=== PATIENT | female | born 1950 | race African-American/Black ===

== ENCOUNTER 2017-07-09 07:14 | Day surgery (SDC) | payer MEDICARE ==
[2017-07-08 14:05] VITALS: BMI 29.0
[2017-07-09] MEDS ORDERED: Sodium Bicarbonate 2.4 MEQ/5 ML ONE (07:33)
[2017-07-09] MEDS ORDERED: Lidocaine 1% PF 5 ML VIAL ONE (07:33)
[2017-07-09 08:05] VITALS: BP 143/72; TEMP 98.1
--- NOTE | 2017-07-09 09:00 | ULT ---
ULTRASOUND GUIDED FINE NEEDLE ASPIRATION: Date: 07/09/17 INDICATION: TIRADS Category 4 lesion within the medial lower pole of the left thyroid lobe seen on a comparison thyroid ultrasound dated 06/26/17. TECHNIQUE: Informed consent was obtained. Preprocedure ultrasound was performed, identifying the solid nodule w ithin the inferior pole of left thyroid gland. This is not the lesion in question. The lesion in katarina munoz is seen within the medial aspect of the inferior pole left thyroid gland near the thyroid isth mus. This lesion was identified on my real-time examination. The site was marked. Site was prepped a nd draped in the usual sterile fashion. Skin was anesthetized utilizing local anesthetic. Under ultr asound guidance, four separate 25 gauge needles were guided down into the solid lesion of the medial left thyroid gland. A total of four separate FNA samples were submitted to the field operations technician present during the examination. Postprocedural images demonstrate no significant intraparenchymal o r subcutaneous hematoma. IMPRESSION: Successful ultrasound guided fine needle aspiration of a TIRADS category 4 lesion within the medial left thyroid lobe. POS: TEE
== END 2017-07-09 08:40 | disposition home or self-care (01) ==
LOC: ULT 07:14
PROVIDERS: ATTEND Internal Medicine
DX: E04.1 Nontoxic single thyroid nodule (principal); I10 Essential (primary) hypertension; M47.22 Other spondylosis with radiculopathy, cervical region; M19.112 Post-traumatic osteoarthritis, left shoulder; Z91.048 Other nonmedicinal substance allergy status; Z79.82 Long term (current) use of aspirin; Z79.899 Other long term (current) drug therapy; Z90.710 Acquired absence of both cervix and uterus; Z90.89 Acquired absence of other organs; Z82.49 Family history of ischemic heart disease and other diseases of the circulatory system
CPT/HCPCS: 10022; 76942; 88173; 88305; J2001

== ENCOUNTER 2018-05-12 09:56 | Outpatient (CLI) | payer MEDICARE | END 2018-05-12 09:57 | disposition home or self-care (01) | LOC: BICMAMMO 09:56 | PROVIDERS: ATTEND Internal Medicine | DX: Z12.31 Encounter for screening mammogram for malignant neoplasm of breast (principal) | CPT/HCPCS: 77063; 77067 ==

== ENCOUNTER 2019-10-22 05:22 | Outpatient (CLI) | payer MEDICARE ==
[2019-10-22 10:12] LABS: #Eosinphils 0.1 thou/uL (0.0-0.7); #Lymphocytes 1.6 thou/uL (1.20-3.40); #Monocytes 0.5 thou/uL (0.11-0.59); %Basophils 0.5 % (0.0-1.0); %Eosinophils 2.7 % (0.0-10.0); %Monocytes 8.7 % (0.0-10.0); %Neutrophils 58.1 % (42.0-75.0); Hemoglobin 13.1 g/dL (12.0-16.0); Mean Corpuscular HGB CONC 32.6 g/dL (32.0-36.0); Mean Corpuscular Hemoglobin 29.8 pg (27.0-31.0); Mean Corpuscular Volume 91.3 fL (78.0-98.0); Mean Platelet Volume 10.6 fL (7.4-10.4); Platelet Count 159 thou/uL (130-400); RBC Distribution Width 12.8 % (11.5-14.5); Red Blood Cell (RBC) Count 4.41 mill/uL (4.20-5.40); White Blood Cell (WBC) Count 5.2 thou/uL (4.8-10.8)
[2019-10-22 10:19] LABS: INR-International Normal Ratio 0.9; Prothrombin Time 12.1 SEC (12.0-14.7)
[2019-10-22 10:32] LABS: Anion Gap 13 mmol/L (10-20); BUN (Urea Nitrogen) 14 mg/dL (9.8-20.1); Calc. Creatinine Clearance 0 mL/min (70-130); Calcium 10.1 mg/dL (7.8-10.44); Carbon Dioxide 27 mmol/L (23-31); Chloride 105 mmol/L (98-107); Estimated GFR-MDRD 87; Glucose 94 mg/dL (83-110); Potassium 3.1 mmol/L (3.5-5.1); Sodium 142 mmol/L (136-145)
[2019-10-22 10:51] LABS: Bacteria/HPF None Seen HPF (None Seen); Bilirubin Negative (Negative); Blood, Urine Negative (Negative); Clarity Clear (Clear); Glucose, Urine (Dipstick) Normal (Negative); Leukocyte Negative Leu/uL (Negative); Nitrite Negative (Negative); Protein, Urine (Dipstick) 10 mg/dL (Neg-Trace); RBC/HPF 0-3 HPF (0-3); Squamous Epithelial 0-3 HPF (0-3); Urobilinogen Normal mg/dL (Less than 2); WBC/HPF 0-3 HPF (0-3)
== END 2019-10-22 05:23 | disposition home or self-care (01) ==
LOC: LABBT 05:22
PROVIDERS: ATTEND Orthopaedic Surgery
DX: Z01.818 Encounter for other preprocedural examination (principal); M17.11 Unilateral primary osteoarthritis, right knee
CPT/HCPCS: 80048; 81001; 85025; 85610; 87081; 93005; 93010

== ENCOUNTER 2019-11-03 05:50 | Inpatient (IN) | payer MEDICARE ==
[2019-10-22 09:29] VITALS: BMI 27.9
[2019-11-03] MEDS ORDERED: Fentanyl 100 MCG/2 ML VIAL ONE ×4 (07:28→12:16)
[2019-11-03] MEDS ORDERED: Midazolam HCl 2 mg/2 ml Vial ONE (07:28)
[2019-11-03] MEDS ORDERED: Sodium Chloride 0.9% 100 ML ONE (07:52)
[2019-11-03] MEDS ORDERED: Tranexamic Acid 1,000 MG/10 ML VIAL ONE (07:52)
[2019-11-03] MEDS ORDERED: Vancomycin 1.5 GRAM/300 ML BAG 1.5 GM/300 ML BAG ONE (07:52)
[2019-11-03] MEDS ORDERED: diphenhydrAMINE 25 MG CAP PO PRN (08:48)
[2019-11-03] MEDS ORDERED: HYDROcodone/Acetaminophen 10/325 mg Tablet PO PRN ×2 (08:48)
[2019-11-03] MEDS ORDERED: Promethazine HCl 25 MG/ML VIAL IM PRN ×3 (08:48→09:59)
[2019-11-03] MEDS ORDERED: Fentanyl 100 MCG/2 ML VIAL SLOW IVP PRN ×2 (08:48)
[2019-11-03] MEDS ORDERED: Acetaminophen 325 MG TAB PO PRN ×2 (08:48→08:57)
[2019-11-03] MEDS ORDERED: Zolpidem Tartrate 5 MG TAB PO PRN ×2 (08:48→08:57)
[2019-11-03] MEDS ORDERED: Ondansetron PF 4 MG/2 ML Vial IVP PRN (08:48)
[2019-11-03] MEDS ORDERED: traMADol HCl 50 MG TAB PO PRN (08:57)
[2019-11-03] MEDS ORDERED: HYDROcodone/Acetaminophen 5/325 mg Tablet PO PRN (08:57)
[2019-11-03] MEDS ORDERED: Fentanyl 100 MCG/2 ML VIAL IV PRN (08:58)
[2019-11-03] MEDS ORDERED: Non-Formulary Item 1 EACH (Multivitamin [Multivitamins] 1 CAP) PO SCH (09:00)
[2019-11-03] MEDS ORDERED: Dexamethasone 20 MG/5 ML VIAL ONE (09:36)
[2019-11-03] MEDS ORDERED: Ondansetron PF 4 MG/2 ML Vial ONE (09:36)
[2019-11-03] MEDS ORDERED: Ropivacaine 0.2% HCl/PF (40 MG/20 ML VIAL) ONE (09:36)
[2019-11-03] MEDS ORDERED: Ropivacaine 0.5% HCl/PF (150 MG/30 ML VIAL) ONE (09:36)
[2019-11-03] MEDS ORDERED: PHENYLEPHRINE-NS 100 MCG/ML 10 ML SYRINGE ONE (09:36)
[2019-11-03] MEDS ORDERED: Lidocaine 1% PF 5 ML VIAL ONE (09:36)
[2019-11-03] MEDS ORDERED: PROPOFOL 200 MG/20 ML VIAL ONE (09:36)
[2019-11-03] MEDS ORDERED: EPHEDRINE 25 MG/5 ML SYRINGE ONE (09:36)
[2019-11-03] MEDS ORDERED: PACU-Morphine 4MG/ML VIAL SLOW IVP PRN (09:59)
[2019-11-03] MEDS ORDERED: HYDROmorphone 2 MG/ML VIAL SLOW IVP PRN (09:59)
[2019-11-03] MEDS ORDERED: Promethazine HCl 25 MG/ML VIAL SLOW IVP PRN (09:59)
[2019-11-03] MEDS ORDERED: Ondansetron HCl/PF 4 MG/2 ML Vial IVP PRN (09:59)
[2019-11-03] MEDS ORDERED: Ketorolac Tromethamine 30 MG/ML VIAL ONE (11:32)
[2019-11-03] MEDS ORDERED: HYDROmorphone 0.5 MG/0.5 ML SYRINGE ONE (11:45)
--- NOTE | 2019-11-03 13:13 | RAD ---
RIGHT KNEE 2 VIEWS: Date: 11/03/2019 HISTORY: Total knee postop arthroplasty. FINDINGS/IMPRESSION: Recent total knee arthroplasty changes. No dislocation or periprosthetic fracture. POS: TEE
[2019-11-03] MEDS: Aspirin 81 mg Enteric Coated Tablet PO SCH ×2 (13:31→20:52)
[2019-11-03] MEDS: Folic Acid 1 MG TAB PO SCH (13:32)
[2019-11-03] MEDS: Estradiol 1 MG TAB PO SCH (13:32)
[2019-11-03] MEDS: Timolol 0.5% Ophth Soln 5 ml Bottle EA EYE SCH ×2 (13:33→20:52)
[2019-11-03] MEDS: Potassium Chloride 20 MEQ TAB PO SCH (13:33)
[2019-11-03] MEDS: Sodium Chloride 0.9% 1,000 ML IV SCH ×3 (13:33→23:45)
[2019-11-03] MEDS: Ketorolac Tromethamine 30 MG/ML VIAL IVP SCH ×3 (13:34→23:46)
[2019-11-03] MEDS: HYDROcodone/Acetaminophen 5/325 mg Tablet PO PRN (13:46)
[2019-11-03] MEDS: Ondansetron PF 4 MG/2 ML Vial IVP PRN (13:47)
--- NOTE | 2019-11-03 13:58 | OP ---
DATE OF PROCEDURE: 11/03/2019 This is Rodger Cordoba PA-C, dictating for Brandon Monaco MD. PREOPERATIVE DIAGNOSIS: End-stage tricompartmental osteoarthritis, right knee. POSTOPERATIVE DIAGNOSIS: End-stage tricompartmental osteoarthritis, right knee. PROCEDURE PERFORMED: Cemented cruciate-sparing computer-assisted navigated right total knee arthroplasty. SURGEON: Brandon Monaco MD [employer] DRIVER: Rodger Cordoba PA-C. ANESTHESIA: General via LMA, augmented with indwelling adductor canal block and a single-shot sciatic block. COMPONENTS USED: Zoutonss Triathlon size 4 cemented cruciate-sparing femoral component with a primary size 3 cemented tibial base plate, 9 mm polyethylene fixed bearing insert, and a 29 patella button. FINDINGS: End-stage severe degenerative tricompartmental disease, [id number] arthrosis, periarticular osteophyte formation, large serous effusion, hypertrophic synovium, and changes consistent with chronic degenerative genu varum. DRAINS: None. SPECIMENS: None. COMPLICATIONS: None. INPUT: 1200 mL of crystalloid. OUTPUT: 300 mL of clear yellow urine. INDICATIONS FOR SURGERY: Reyna is a 69-year-old female who has had progressive right knee pain and problems with standing and walking for the last 5 to 7 years. She has failed conservative management and elected to proceed with total knee arthroplasty as definitive treatment of her pain. PROCEDURE IN DETAIL: After informed consent was obtained in the preoperative holding area, the patient was taken to the operative suite where general anesthesia was induced. Once adequate level of general anesthesia was obtained, the patient was positioned and a well-padded tourniquet was placed around the right proximal thigh. The right lower extremity was then prepped and draped in the usual sterile fashion. Prior to exsanguination, a time-out was called and all members of the surgical team agreed upon site, surgeon, and patient. The extremity was then exsanguinated and the tourniquet was raised. A midline longitudinal incision was then made directly over the patella extending 2 fingerbreadths above the superior pole of the patella and 2 fingerbreadths inferior to the inferior patellar pole of the patella. Deeper subcutaneous layers were dissected sharply and local bleeding was controlled with Bovie electrocautery. A quad tendon longitudinal split was then made sharply and a median parapatellar arthrotomy was carried out both sharp and with Bovie electrocautery, carried down to 1 fingerbreadth medial to the tibial tubercle. The knee was then placed into flexion and the patella was everted nicely, and a copious fat pad ectomy was performed, allowing for greater exposure of the tibia. The computer-assisted distal femoral fiducial was then placed and pinned firmly, and the distal femoral cutting guide was pinned firmly into place. The oscillating saw was then used to remove the appropriate amount of bone. The 4-in-1 cutting block was then placed on the distal femur and the oscillating saw was used to remove the appropriate amount of bone off the anterior, posterior, and chamfer cuts. After completion of bone cuts, the anterior cruciate ligament was resected sharply and the posterior cruciate ligament retractor was placed and the tibia was subluxed for better exposure. Partial meniscectomies were carried out, and the tibial computer-assisted fiducial was pinned, and the cutting guide was placed. Oscillating saw was then used to remove the bone, with Hohmann retractors used to take care and protect the collateral ligaments. After the tibial resection was performed, a laminar masking machine operator was placed in between the freshened bone cuts. The knee placed at 90 degrees and further bilateral meniscectomies were carried out, and the curved osteotome and curettage were used to remove any excess bone spurs in the posterior compartment. The trial femoral component, tibial baseplate were placed with the appropriate polyethylene trial insert with an appropriate polyethylene spacer and patellar button. The knee was taken through full range of motion with flexion and extension from 0 to 90 degrees and patellar broach squarely in the trochlea without any squinting or subluxation noted. The knee was also stable to varus and valgus stressing at 0, 15, 45, and 90 degrees of flexion. The drawer was negative. All trial components were then removed and the keel punch was used to provide the appropriate defect in the tibia with a mallet. The freshened bone cuts were copiously irrigated with pulsatile lavage of about 1.5 L to remove all excess debris. The freshened bone cuts were then dried with suction and lap sponge. The knee was placed in flexion and retractors were placed to provide access to all bone cuts. Tobramycin-impregnated methyl methacrylate cement was then placed on the freshened bone cuts and implants which were malleted firmly into place. Curettage and Pelsor elevators were used to remove any excess bone cement. The knee was placed into full extension and the patellar button was placed under compression, and the cement was allowed to cure. Once completed, the components were again taken through full range of motion and copious irrigation of the knee was carried out with another liter of normal saline. All components were inspected fully with full range of motion and varus and valgus stressing. There was no laxity noted and full extension was observed clinically. Primary closure was accomplished with #2 interrupted Vicryl stitch of the arthrotomy defect. This was oversewn with a #2 running Quill barbed stitch. The subcutaneous layer was then closed with a running 0 barbed Monocryl stitch and skin closure accomplished with a running subcuticular 3-0 Monocryl barbed Quill stitch and augmented with cement on the skin. Tourniquet was lowered. Good spontaneous return of distal pulses was noted clinically and a sterile dressing was applied to the incision. The procedure was terminated without any complications. The patient was awakened in the operative suite and taken to the recovery room in stable condition. Job ID: [id number]
[2019-11-03] MEDS ORDERED: Ketorolac Tromethamine 30 MG/ML VIAL IVP SCH (14:00)
[2019-11-03] MEDS: CEFAZOLIN 2 GM in Premix Bag 1 BAG IVPB SCH ×2 (15:54→23:44)
--- NOTE | 2019-11-03 16:04 | PDOC.HOSPP ---
- Subjective Encounter Date: 11/03/19 Encounter Time: 15:20 Subjective: Patient seen and examined. No new complaints. s/p Right TKR. Denies any chest pain, heart palpitations, SOB, N/V. Consulted for medical management. - Objective Vital Signs & Weight: Vital Signs (12 hours) Temp Pulse Resp BP Pulse Ox 11/03/19 13:00 97.4 F L 57 L 16 111/68 93 L Weight Weight 184 lb Additional Labs: Pre-op labs reviewed by me. 10/22 - K+ 3.1 EKG Reviewed by me: Yes (10/22 - Sinus Tach, 2nd degree AV block (lots of artifact )) Hospitalist ROS - Review of Systems Constitutional: denies: fever, chills, sweats, weakness, malaise, other Respiratory: denies: cough, dry, shortness of breath, hemoptysis, SOB with excertion, pleuritic pain, sputum, wheezing, other Cardiovascular: denies: chest pain, palpitations, orthopnea, paroxysmal noc. dyspnea, edema, light headedness, other - Medication Medications: Active Medications Generic Name Dose Route Start Last Admin Trade Name Freq PRN Reason Stop Dose Admin Hydrocodone Bitart/Acetaminophen 2 tab 11/03/19 08:57 11/03/19 13:46 [place] 5/325 PO 2 tab Q4H PRN Administration For Moderate Pain 4-6 Aspirin 81 mg 11/03/19 09:00 11/03/19 13:31 Ecotrin PO Not Given BID DILIA Estradiol 2 mg 11/03/19 09:00 11/03/19 13:32 Estrace PO Not Given DAILY DILIA Folic Acid 1 mg 11/03/19 09:00 11/03/19 13:32 Folvite PO Not Given DAILY DILIA Cefazolin Sodium/Dextrose 2 gm 50 mls @ 100 mls/hr 11/03/19 15:00 11/03/19 15 :54 / Device IVPB 11/03/19 23:29 50 mls 1500,2300 DILIA Administration Sodium Chloride 1,000 mls @ 100 mls/hr 11/03/19 09:00 11/03/19 13:33 Normal Saline 0.9% IV Not Given .Q10H DILIA Ketorolac Tromethamine 15 mg 11/03/19 12:00 11/03/19 13:34 Toradol IVP 11/05/19 06:01 Not Given Q6HR [facility] Ondansetron HCl 4 mg 11/03/19 08:57 11/03/19 13:47 Zofran IVP 4 mg Q6H PRN Administration Nausea/Vomiting Potassium Chloride 20 meq 11/03/19 09:00 11/03/19 13:33 K-Dur PO Not Given DAILY [facility] Timolol Maleate 1 drop 11/03/19 09:00 11/03/19 13:33 Timoptic 0.5% Ophth Soln EA EYE Not Given BID DILIA - Exam General Appearance: NAD, awake alert Heart: RRR, no murmur, no gallops, no rubs, normal peripheral pulses Respiratory: CTAB, no wheezes, no rales, no ronchi Gastrointestinal: soft, non-tender, no guarding, no rigidity, diminished bowl sounds Psychiatric: normal affect, A&O x 3 Hosp A/P - Plan Impression: Hypokalemia, pre-op lab 3.1 HTN HLD Glaucoma Anemia Plan: Continue home meds Start 1/2 dose metoprolol Hold lasix and Norvasc for now Nerve block per anesthesia ASA DVT prophylaxis per [facility] protocol Pepcid GI prophylaxis per [facility] protocol BMP and hemogram in AM.
[2019-11-03] MEDS: Temazepam 15 MG CAP PO SCH (20:52)
[2019-11-03] MEDS ORDERED: Furosemide 40 MG TAB PO SCH (21:00)
[2019-11-03] MEDS ORDERED: Aspirin 81 mg Enteric Coated Tablet PO SCH (21:00)
[2019-11-03] MEDS ORDERED: Metoprolol Tartrate 100 MG TAB PO SCH (21:00)
[2019-11-03] MEDS ORDERED: Metoprolol Tartrate 50 MG TAB PO SCH (21:00)
[2019-11-03] MEDS ORDERED: Amlodipine 10 MG TAB PO SCH (21:00)
[2019-11-04] MEDS: Sodium Chloride 0.9% 1,000 ML IV SCH ×2 (04:20→14:16)
[2019-11-04] MEDS: Ketorolac Tromethamine 30 MG/ML VIAL IVP SCH ×3 (05:15→18:10)
[2019-11-04 06:08] LABS: Anion Gap 10 mmol/L (10-20); BUN (Urea Nitrogen) 9 mg/dL (9.8-20.1); Calc. Creatinine Clearance 106 mL/min (70-130); Calcium 8.6 mg/dL (7.8-10.44); Carbon Dioxide 24 mmol/L (23-31); Chloride 106 mmol/L (98-107); Estimated GFR-MDRD Greater than 90; Glucose 105 mg/dL (83-110); Potassium 3.4 mmol/L (3.5-5.1); Sodium 137 mmol/L (136-145)
[2019-11-04 06:14] LABS: Hemoglobin 10.2 g/dL (12.0-16.0); Mean Corpuscular Hemoglobin 30.3 pg (27.0-31.0); Mean Corpuscular Volume 91.8 fL (78.0-98.0); Mean Platelet Volume 10.5 fL (7.4-10.4); Platelet Count 115 thou/uL (130-400); RBC Distribution Width 12.6 % (11.5-14.5); Red Blood Cell (RBC) Count 3.37 mill/uL (4.20-5.40); White Blood Cell (WBC) Count 6.3 thou/uL (4.8-10.8)
[2019-11-04] MEDS: Famotidine 20 MG TAB PO SCH (08:02)
[2019-11-04] MEDS: Estradiol 1 MG TAB PO SCH (08:02)
[2019-11-04] MEDS: Ferrous Gluconate 324 MG TAB PO SCH ×2 (08:02→20:26)
[2019-11-04] MEDS: Timolol 0.5% Ophth Soln 5 ml Bottle EA EYE SCH ×2 (08:02→20:26)
[2019-11-04] MEDS: Zinc Sulfate 220 MG CAP PO SCH (08:03)
[2019-11-04] MEDS: Potassium Chloride 20 MEQ TAB PO SCH (08:03)
[2019-11-04] MEDS: Aspirin 81 mg Enteric Coated Tablet PO SCH ×2 (08:03→20:26)
[2019-11-04] MEDS: Multivitamin W/ Minerals 1 TAB PO SCH (08:03)
[2019-11-04] MEDS: Folic Acid 1 MG TAB PO SCH (08:03)
[2019-11-04] MEDS: Senokot S 8.6-50 MG TAB PO SCH ×2 (08:03→20:26)
[2019-11-04] MEDS: traMADol HCl 50 MG TAB PO PRN ×2 (08:03→13:38)
[2019-11-04] MEDS: Ropivacaine HCl/PF 250 ML in Premix Bag 1 BAG NERVE BLCK SCH (11:16)
[2019-11-04] MEDS: HYDROcodone/Acetaminophen 5/325 mg Tablet PO PRN ×2 (11:18→20:25)
[2019-11-04] MEDS ORDERED: Magnesium Sulfate 2 GM in Sodium Chloride 0.9% 100 ML IVPB SCH (12:00)
[2019-11-04] MEDS ORDERED: Magnesium 2 GM/50 ML 2 GM in Premix Bag 1 BAG IVPB SCH (13:00)
[2019-11-04] MEDS: Ondansetron PF 4 MG/2 ML Vial IVP PRN (16:11)
[2019-11-04] MEDS: Temazepam 15 MG CAP PO SCH (20:26)
[2019-11-04] MEDS: Metoprolol Tartrate 50 MG TAB PO SCH (21:16)
--- NOTE | 2019-11-04 23:30 | PDOC.HOSPP ---
- Subjective Encounter Date: 11/04/19 Encounter Time: 09:00 Subjective: Patient seen and examined for med mngt. Pain controlled. No N/V or CP. No new complaints. No overnight events - Objective Vital Signs & Weight: Vital Signs (12 hours) Temp Pulse Resp BP BP Pulse Ox 11/04/19 23:11 98.5 F 60 16 125/74 95 11/04/19 20:26 70 136/76 11/04/19 20:09 97 11/04/19 19:52 98.4 F 70 16 138/76 97 11/04/19 16:15 98.0 F 71 14 151/87 H 95 11/04/19 12:49 97.7 F 68 18 124/73 98 Weight Admit Weight 184 lb Weight 184 lb I&O: 11/03/19 11/04/19 11/05/19 06:59 06:59 06:59 Intake Total 850 1950 Output Total 350 450 Balance 500 1500 Result Diagrams: 11/05/19 05:30 11/04/19 05:14 Additional Labs: Laboratory Tests 11/04/19 05:14 Magnesium 1.5 L EKG Reviewed by me: Yes (SR) Hospitalist ROS - Review of Systems Respiratory: denies: cough, dry, shortness of breath, hemoptysis, SOB with excertion, pleuritic pain, sputum, wheezing, other Cardiovascular: denies: chest pain, palpitations, orthopnea, paroxysmal noc. dyspnea, edema, light headedness, other - Medication Medications: Active Medications Generic Name Dose Route Start Last Admin Trade Name Freq PRN Reason Stop Dose Admin Acetaminophen 650 mg 11/03/19 08:48 11/04/19 05:25 Tylenol PO 650 mg Q4H PRN Administration Headache/Fever or Pain Hydrocodone Bitart/Acetaminophen 1 tab 11/03/19 08:57 11/04/19 05:25 [place] 5/325 PO 1 tab Q4H PRN Administration Mild Pain (1-3) Hydrocodone Bitart/Acetaminophen 2 tab 11/03/19 08:57 11/04/19 20:25 [place] 5/325 PO 2 tab Q4H PRN Administration For Moderate Pain 4-6 Aspirin 81 mg 11/03/19 09:00 11/04/19 20:26 Ecotrin PO 81 mg BID DILIA Administration Estradiol 2 mg 11/03/19 09:00 11/04/19 08:02 Estrace PO 2 mg DAILY DILIA Administration Famotidine 20 mg 11/04/19 09:00 11/04/19 08:02 Pepcid PO 20 mg DAILY DILIA Administration Ferrous Gluconate 324 mg 11/04/19 09:00 11/04/19 20:26 Fergon PO 324 mg BID DILIA Administration Folic Acid 1 mg 11/03/19 09:00 11/04/19 08:03 Folvite PO 1 mg DAILY DILIA Administration Sodium Chloride 1,000 mls @ 100 mls/hr 11/03/19 09:00 11/04/19 14:16 Normal Saline 0.9% IV Not Given .Q10H DILIA Ropivacaine 250 ml/ Device 250 mls @ 10 mls/hr 11/03/19 08:57 11/04/19 11:16 NERVE BLCK 11/06/19 08:56 250 mls INF DILIA Administration Iron/Minerals/Multivitamins 1 tab 11/04/19 09:00 11/04/19 08:03 Theragran M PO 1 tab DAILY DILIA Administration Ketorolac Tromethamine 15 mg 11/03/19 12:00 11/04/19 18:10 Toradol IVP 11/05/19 06:01 15 mg Q6HR DILIA Administration Metoprolol Tartrate 100 mg 11/04/19 21:00 11/04/19 21:16 Lopressor PO 100 mg QPM DILIA Administration Ondansetron HCl 4 mg 11/03/19 08:57 11/04/19 16:11 Zofran IVP 4 mg Q6H PRN Administration Nausea/Vomiting Potassium Chloride 20 meq 11/03/19 09:00 11/04/19 08:03 K-Dur PO 20 meq DAILY DILIA Administration Senna/Docusate Sodium 2 tab 11/04/19 09:00 11/04/19 20:26 Senokot S PO 2 tab BID DILIA Administration Temazepam 15 mg 11/03/19 21:00 11/04/19 20:26 Restoril PO 15 mg HS DILIA Administration Timolol Maleate 1 drop 11/03/19 09:00 11/04/19 20:26 Timoptic 0.5% Ophth Soln EA EYE 1 drop BID DILIA Administration Tramadol HCl 50 mg 11/03/19 08:57 02/19/20 13:38 Ultram PO 50 mg Q6H PRN Administration Mild Pain (1-3) Zinc Sulfate 220 mg 11/04/19 09:00 11/04/19 08:03 Zinc Sulfate PO 220 mg DAILY DILIA Administration - Exam General Appearance: NAD Heart: RRR, no gallops Respiratory: no wheezes, no rales, no ronchi Gastrointestinal: non-tender, non-distended, normal bowel sounds Extremities: no edema Hosp A/P - Plan DVT proph w/SCDs Hypokalemia/Hypomagnesemia HTN HLD Glaucoma Anemia Thrombocytopenia Plan: Replace Potassium and Magesium Cont Metoprolol Cont other meds as above Resume Lasix/Norvasc at dc AM labs
[2019-11-05] MEDS: Ketorolac Tromethamine 30 MG/ML VIAL IVP SCH ×2 (00:17→06:07)
[2019-11-05] MEDS: Sodium Chloride 0.9% 1,000 ML IV SCH ×3 (00:22→22:07)
[2019-11-05 06:07] LABS: Hemoglobin 9.7 g/dL (12.0-16.0); Mean Corpuscular HGB CONC 33.4 g/dL (32.0-36.0); Mean Corpuscular Hemoglobin 30.8 pg (27.0-31.0); Mean Corpuscular Volume 92.3 fL (78.0-98.0); Mean Platelet Volume 10.3 fL (7.4-10.4); Platelet Count 104 thou/uL (130-400); RBC Distribution Width 12.7 % (11.5-14.5); Red Blood Cell (RBC) Count 3.14 mill/uL (4.20-5.40); White Blood Cell (WBC) Count 6.1 thou/uL (4.8-10.8)
[2019-11-05] MEDS: Timolol 0.5% Ophth Soln 5 ml Bottle EA EYE SCH ×2 (08:32→20:05)
[2019-11-05] MEDS: Senokot S 8.6-50 MG TAB PO SCH ×2 (08:33→20:04)
[2019-11-05] MEDS: Famotidine 20 MG TAB PO SCH (08:34)
[2019-11-05] MEDS: HYDROcodone/Acetaminophen 5/325 mg Tablet PO PRN ×3 (08:34→17:46)
[2019-11-05] MEDS: Multivitamin W/ Minerals 1 TAB PO SCH (08:34)
[2019-11-05] MEDS: Aspirin 81 mg Enteric Coated Tablet PO SCH ×2 (08:34→20:04)
[2019-11-05] MEDS: Zinc Sulfate 220 MG CAP PO SCH (08:34)
[2019-11-05] MEDS: Ferrous Gluconate 324 MG TAB PO SCH ×2 (08:34→20:04)
[2019-11-05] MEDS: Folic Acid 1 MG TAB PO SCH (08:34)
[2019-11-05] MEDS: Estradiol 1 MG TAB PO SCH (08:34)
[2019-11-05] MEDS: Potassium Chloride 20 MEQ TAB PO SCH (08:34)
[2019-11-05] MEDS ORDERED: Amlodipine 5 MG TAB PO SCH (12:45)
[2019-11-05] MEDS: Ropivacaine HCl/PF 250 ML in Premix Bag 1 BAG NERVE BLCK SCH (14:29)
[2019-11-05] MEDS: Temazepam 15 MG CAP PO SCH (20:04)
[2019-11-05] MEDS: Metoprolol Tartrate 50 MG TAB PO SCH (20:05)
[2019-11-06] MEDS: Sodium Chloride 0.9% 1,000 ML IV SCH (06:07)
[2019-11-06] MEDS: HYDROcodone/Acetaminophen 5/325 mg Tablet PO PRN ×3 (06:11→10:01)
[2019-11-06] MEDS: Famotidine 20 MG TAB PO SCH (08:26)
[2019-11-06] MEDS: Folic Acid 1 MG TAB PO SCH (08:27)
[2019-11-06] MEDS: Zinc Sulfate 220 MG CAP PO SCH (08:27)
[2019-11-06] MEDS: Estradiol 1 MG TAB PO SCH (08:27)
[2019-11-06] MEDS: Potassium Chloride 20 MEQ TAB PO SCH (08:27)
[2019-11-06] MEDS: Ferrous Gluconate 324 MG TAB PO SCH (08:28)
[2019-11-06] MEDS: Aspirin 81 mg Enteric Coated Tablet PO SCH (08:28)
[2019-11-06] MEDS: Timolol 0.5% Ophth Soln 5 ml Bottle EA EYE SCH (08:28)
[2019-11-06] MEDS: Senokot S 8.6-50 MG TAB PO SCH (08:28)
[2019-11-06] MEDS: Multivitamin W/ Minerals 1 TAB PO SCH (08:28)
[2019-11-06] MEDS ORDERED: Furosemide 20 MG TAB PO SCH (09:00)
[2019-11-06] MEDS ORDERED: Amlodipine 5 MG TAB PO SCH (09:00)
[2019-11-06 15:51] VITALS: BP 167/81; TEMP 97.9
== END 2019-11-06 17:42 | disposition home or self-care (01) | DRG 470 ==
LOC: SDC 05:50 → EEVIPCON 08:30 → SJJU 13:17
PROVIDERS: ADMIT Orthopaedic Surgery; ATTEND Orthopaedic Surgery
PROC: 0SRC0J9 Replacement of Right Knee Joint with Synthetic Substitute, Cemented, Open Approach (ICD-10-PCS; principal; 2019-11-03)
DX: M17.11 Unilateral primary osteoarthritis, right knee (principal); M25.461 Effusion, right knee; M67.261 Synovial hypertrophy, not elsewhere classified, right lower leg; I10 Essential (primary) hypertension; E78.5 Hyperlipidemia, unspecified; D64.9 Anemia, unspecified; H40.9 Unspecified glaucoma; D69.6 Thrombocytopenia, unspecified; E87.6 Hypokalemia; E83.42 Hypomagnesemia; Z91.048 Other nonmedicinal substance allergy status; Z90.710 Acquired absence of both cervix and uterus; Z90.89 Acquired absence of other organs; Z98.890 Other specified postprocedural states
CPT/HCPCS: 36415; 80048; 83735; 85027; C1713; C1776; J0690; J1100; J1170; J1885; J2001; J2250; J2405; J2704; J2795; J3010; J3475; J3490

== ENCOUNTER 2020-04-06 06:26 | Outpatient (CLI) | payer MEDICARE, OTHER ==
[2020-04-06 16:22] LABS: #Eosinphils 0.2 thou/uL (0.0-0.7); #Monocytes 0.3 thou/uL (0.11-0.59); #Neutrophils 2.6 thou/uL (1.40-6.50); %Basophils 0.2 % (0.0-1.0); %Eosinophils 3.9 % (0.0-10.0); %Lymphocytes 38.4 % (21.0-51.0); %Monocytes 5.9 % (0.0-10.0); %Neutrophils 51.7 % (42.0-75.0); Hemoglobin 13.5 g/dL (12.0-16.0); Large Platelets SLIGHT; MDiff Complete? YES; Mean Corpuscular HGB CONC 33.8 g/dL (32.0-36.0); Mean Corpuscular Volume 88.8 fL (78.0-98.0); Mean Platelet Volume 11.5 fL (7.4-10.4); Platelet Count 142 thou/uL (130-400); Platelet Morphology Comment Appears Adequate; RBC Distribution Width 13.8 % (11.5-14.5); RBC Morphology Normal; Red Blood Cell (RBC) Count 4.49 mill/uL (4.20-5.40); White Blood Cell (WBC) Count 5.1 thou/uL (4.8-10.8)
[2020-04-06 16:23] LABS: Anion Gap 14 mmol/L (10-20); BUN (Urea Nitrogen) 18 mg/dL (9.8-20.1); Calc. Creatinine Clearance 0 mL/min (70-130); Calcium 10.4 mg/dL (7.8-10.44); Carbon Dioxide 24 mmol/L (23-31); Chloride 105 mmol/L (98-107); Estimated GFR-MDRD 74; Glucose 105 mg/dL (83-110); Potassium 3.3 mmol/L (3.5-5.1); Sodium 140 mmol/L (136-145)
[2020-04-06 16:27] LABS: INR-International Normal Ratio 0.9; Prothrombin Time 11.6 sec (12.0-14.7)
[2020-04-07 14:38] LABS: SARS-CoV-2 MS2 Positive; SARS-CoV-2 N Gene Negative; SARS-CoV-2 S Gene Negative; SARS-CoV-2 orf1ab Negative
== END 2020-04-06 06:27 | disposition home or self-care (01) ==
LOC: LABBT 06:26
PROVIDERS: ATTEND Orthopaedic Surgery
DX: Z01.812 Encounter for preprocedural laboratory examination (principal); Z11.59 Encounter for screening for other viral diseases; M17.12 Unilateral primary osteoarthritis, left knee
CPT/HCPCS: 80048; 85025; 85610; 87081; U0003; 87635

== ENCOUNTER 2020-04-11 06:00 | Inpatient (IN) | payer MEDICARE ==
[2020-04-11] MEDS ORDERED: Tranexamic Acid 1,000 MG/10 ML VIAL ONE (06:56)
[2020-04-11] MEDS ORDERED: Sodium Chloride 0.9% 100 ML ONE (06:56)
[2020-04-11] MEDS ORDERED: Vancomycin 1.5 GRAM/300 ML BAG ONE (06:56)
[2020-04-11] MEDS ORDERED: Midazolam HCl 2 mg/2 ml Vial ONE (07:49)
[2020-04-11] MEDS ORDERED: Fentanyl 100 MCG/2 ML VIAL ONE ×3 (07:49→11:42)
[2020-04-11] MEDS ORDERED: EPHEDRINE 25 MG/5 ML SYRINGE ONE (09:02)
[2020-04-11] MEDS ORDERED: Succinylcholine Chloride 20 MG/ML 10 ml SYRINGE FS ONE (09:02)
[2020-04-11] MEDS ORDERED: Bupivacaine HCl 0.5%/Epinephrine 1:200,000/PF 30 ml Vial ONE (09:02)
[2020-04-11] MEDS ORDERED: Ondansetron PF 4 MG/2 ML Vial ONE (09:02)
[2020-04-11] MEDS ORDERED: Ropivacaine 0.2% HCl/PF (40 MG/20 ML VIAL) ONE (09:02)
[2020-04-11] MEDS ORDERED: Lidocaine 1% PF 5 ML VIAL ONE (09:02)
[2020-04-11] MEDS ORDERED: Dexamethasone 20 MG/5 ML VIAL ONE (09:02)
[2020-04-11] MEDS ORDERED: Rocuronium Bromide 10 MG/ML (10ML VIAL) ONE (09:02)
[2020-04-11] MEDS ORDERED: PROPOFOL 200 MG/20 ML VIAL ONE (09:02)
[2020-04-11] MEDS ORDERED: Glycopyrrolate 0.2 MG/ML 5 ML SYRINGE ONE (09:02)
[2020-04-11] MEDS ORDERED: HYDROcodone/Acetaminophen 10/325 mg Tablet PO PRN (10:18)
[2020-04-11] MEDS ORDERED: Ondansetron PF 4 MG/2 ML Vial IVP PRN (10:18)
[2020-04-11] MEDS ORDERED: Zolpidem Tartrate 5 MG TAB PO PRN ×2 (10:18→11:34)
[2020-04-11] MEDS ORDERED: Ropivacaine HCl/PF 250 ML in Premix Bag 1 BAG NERVE BLCK SCH (10:18)
[2020-04-11] MEDS ORDERED: traMADol HCl 50 MG TAB PO PRN ×2 (10:18)
[2020-04-11] MEDS ORDERED: Promethazine HCl 25 MG/ML VIAL IM PRN ×3 (10:18→11:43)
[2020-04-11] MEDS ORDERED: SUGAMMADEX SODIUM 200 MG/2 ML VIAL ONE (11:13)
[2020-04-11] MEDS ORDERED: Acetaminophen 325 MG TAB PO PRN (11:34)
[2020-04-11] MEDS ORDERED: Promethazine HCl 25 MG/ML VIAL SLOW IVP PRN (11:43)
[2020-04-11] MEDS ORDERED: Ketorolac Tromethamine 30 MG/ML VIAL IVP PRN (11:43)
[2020-04-11] MEDS ORDERED: Ondansetron HCl/PF 4 MG/2 ML Vial IVP PRN (11:43)
--- NOTE | 2020-04-11 11:50 | OP ---
DATE OF PROCEDURE: 04/11/2020 TITLE OF PROCEDURE: Left total knee arthroplasty using Brule #5 Triathlon femur, 4 tibia, 9 mm CS X3 polyethylene, and A29 patella. UKE OPERATOR: Abdelrahman Abdalla PA-C BLOOD LOSS: Minimal. SPECIMENS: None. COMPLICATIONS: None. TOURNIQUET TIME: 60 minutes. DESCRIPTION OF PROCEDURE: After appropriate consent was obtained, the patient was taken to the operating room, where spinal anesthesia was induced. The patient received Ancef prior to beginning the surgical procedure. The left leg was placed in the tourniquet and prepped and draped in the usual sterile fashion. After exsanguination, the tourniquet was inflated to 300 mmHg. A longitudinal incision was made over the patella, hemostasis was obtained and dissection was carried down to the retinaculum. The medial parapatellar arthrotomy was performed and the patella was then everted and the knee was flexed. The meniscus tissue was excised. The intramedullary canal was opened with a drill. The distal femoral cutting guide was keyed off the intramedullary guide. The distal femoral cut was made with the oscillating saw after appropriate alignment had been confirmed. The #2 guide was then used to drill holes in the distal femur for placement of further guides. The femur was sized and found to be that the 5 was the most appropriate size. The anterior chamfer and posterior cut were made, followed by the posterior chamber and anterior cut. The 5 femoral trial was placed on the femur and showed good fit. The femoral trial was then removed and attention was then turned to the tibia, where the 3:1 tibial guide was placed. This was aligned using the drill bit along with the malleoli. A 4 mm cut was keyed off the medial side of the tibia. The proximal tibial cutting guide was affixed to bone using drill pins. The Cobra retractors were used to protect the contents of the popliteal canal and an oscillating saw was used to resect the proximal. The tibia was sized and found the 4 was the most appropriate size. A trial reduction was performed, which showed good mediolateral stability and full extension with the 9 mm plastic spacer. The patella was everted and the oscillating saw was used to cut the patella. The osteophytes were removed as needed. The patella was sized and the A29 was found to be the most appropriate size. The patella was then drilled and the A29 patellar button trial was placed on the patella. The knee was put through a range of motion and there was no need for a lateral release. There was good tracking of the patella. After this was complete, the patella trial was removed. The femur was drilled and the proximal tibia was punched with the cruciate chisel. Copious irrigation was then performed over all bone ends. The bones were meticulously dried and free of debris. Tobramycin treated cement was then used to cement in the 4 tibia with a 9 mm spacer, the 5 femur and all-plastic patella. After cement had cured, care was taken to make sure that all extraneous cement had been removed. Copious irrigation was performed again using irrigant and pulsatile lavage. The tracking was checked once again and tracking was appropriate. The Arnulfo drain was placed in the knee. The retinaculum was repaired using #1 Vicryl. The subcutaneous tissues were closed with 2-0 Vicryl and the skin was closed with noa. A sterile dressing was applied. The drain was connected and the patient was placed in a knee immobilizer. There were no complications. Job ID: [id number]
--- NOTE | 2020-04-11 12:13 | RAD ---
Exam: XR Knee Lt 2 View HISTORY: Post total knee replacement. Postoperative. COMPARISON: None FINDINGS: Postoperative changes related to left total knee replacement are seen. No hardware complication is id entified. No dislocation or fracture is appreciated. Subcutaneous edema and subcutaneous emphysema are seen about the left knee. IMPRESSION: Postoperative changes related to recent left total knee prosthesis.
[2020-04-11 12:39] VITALS: BMI 27.9
[2020-04-11] MEDS: Sodium Chloride 0.9% 1,000 ML IV SCH ×3 (14:59→20:56)
[2020-04-11] MEDS: CEFAZOLIN 2 GM in Premix Bag 1 BAG IVPB SCH (15:00)
[2020-04-11] MEDS: Ketorolac Tromethamine 30 MG/ML VIAL IVP SCH ×2 (15:00→17:28)
[2020-04-11] MEDS: Potassium Citrate 10 MEQ TAB PO SCH (17:28)
[2020-04-11] MEDS: Temazepam 15 MG CAP PO SCH (20:26)
[2020-04-11] MEDS: Calcium Carbonate 600 MG + Vit D TAB PO SCH (20:26)
[2020-04-11] MEDS: Furosemide 40 MG TAB PO SCH (20:26)
[2020-04-11] MEDS: Amlodipine 10 MG TAB PO SCH (20:26)
[2020-04-11] MEDS: Aspirin 81 mg Enteric Coated Tablet PO SCH (20:26)
[2020-04-11] MEDS: Metoprolol Tartrate 25 MG TAB PO SCH (20:27)
[2020-04-11] MEDS: Brimonidine Tartrate 0.2% Ophth Soln 5 ml Bottle EA EYE SCH (20:27)
[2020-04-11] MEDS: Timolol 0.5% Ophth Soln 5 ml Bottle EA EYE SCH (20:27)
[2020-04-11] MEDS ORDERED: Aspirin 81 mg Enteric Coated Tablet PO SCH (21:00)
[2020-04-11] MEDS ORDERED: NIACIN PO SCH (21:00)
[2020-04-11] MEDS ORDERED: Niacin 500 MG TAB PO SCH (21:00)
[2020-04-12] MEDS: CEFAZOLIN 2 GM in Premix Bag 1 BAG IVPB SCH
[2020-04-12] MEDS: Ketorolac Tromethamine 30 MG/ML VIAL IVP SCH ×5 (00:21→23:45)
[2020-04-12 05:58] LABS: Hemoglobin 11.4 g/dL (12.0-16.0); Mean Corpuscular HGB CONC 31.6 g/dL (32.0-36.0); Mean Platelet Volume 10.1 fL (7.4-10.4); Platelet Count 122 thou/uL (130-400); RBC Distribution Width 13.8 % (11.5-14.5); Red Blood Cell (RBC) Count 3.92 mill/uL (4.20-5.40); White Blood Cell (WBC) Count 7.3 thou/uL (4.8-10.8)
[2020-04-12] MEDS: Sodium Chloride 0.9% 1,000 ML IV SCH ×2 (06:11→16:11)
[2020-04-12] MEDS ORDERED: Famotidine 20 MG TAB PO PRN (09:00)
[2020-04-12] MEDS ORDERED: Non-Formulary Item 1 EACH (Multivitamin [Multivitamins] 1 CAP) PO SCH (09:00)
[2020-04-12] MEDS: HYDROcodone/Acetaminophen 10/325 mg Tablet PO PRN ×3 (09:31→23:45)
[2020-04-12] MEDS: Estradiol 1 MG TAB PO SCH (09:32)
[2020-04-12] MEDS: Aspirin 81 mg Enteric Coated Tablet PO SCH ×2 (09:32→21:18)
[2020-04-12] MEDS: Ferrous Gluconate 324 MG TAB PO SCH ×2 (09:32→18:05)
[2020-04-12] MEDS: Potassium Chloride 20 MEQ TAB PO SCH (09:32)
[2020-04-12] MEDS: Multivitamin W/ Minerals 1 TAB PO SCH (09:32)
[2020-04-12] MEDS: Folic Acid 1 MG TAB PO SCH (09:33)
[2020-04-12] MEDS: Senokot S 8.6-50 MG TAB PO SCH ×2 (09:33→21:18)
[2020-04-12] MEDS: Brimonidine Tartrate 0.2% Ophth Soln 5 ml Bottle EA EYE SCH ×2 (09:35→21:17)
[2020-04-12] MEDS: Timolol 0.5% Ophth Soln 5 ml Bottle EA EYE SCH ×2 (09:35→21:17)
[2020-04-12] MEDS: Fentanyl 100 MCG/2 ML VIAL SLOW IVP PRN (10:09)
--- NOTE | 2020-04-12 13:45 | PRG ---
DATE OF SERVICE: 04/12/2020 SUBJECTIVE: Reyna is a 69-year-old female, postoperative day 1 from left total knee arthroplasty. She is doing relatively well. She has had very a little complaints overnight and she has a very little pain. She ambulated 200 feet yesterday. OBJECTIVE: VITAL SIGNS: Temperature 97.9, pulse 61, respiratory rate 18, blood pressure is 127/75. GENERAL: She is alert, responsive, appropriate with examiner. EXTREMITIES: Incision is clean. No strike through. She is neurovascularly intact in the left lower extremity. LABORATORY DATA: Hemoglobin and hematocrit of 11.4 and 36.1. IMPRESSION: A 69-year-old female, postoperative day 1 from left total knee arthroplasty, doing well. PLAN: Continue current care. Give consideration to transfer her to either skilled facility or inpatient rehab versus discharge home. Job ID: [id number]
[2020-04-12] MEDS: Potassium Citrate 10 MEQ TAB PO SCH (18:05)
[2020-04-12] MEDS: Temazepam 15 MG CAP PO SCH (21:17)
[2020-04-12] MEDS: Amlodipine 10 MG TAB PO SCH (21:18)
[2020-04-12] MEDS: Calcium Carbonate 600 MG + Vit D TAB PO SCH (21:18)
[2020-04-12] MEDS: Furosemide 40 MG TAB PO SCH (21:18)
[2020-04-12] MEDS: Metoprolol Tartrate 25 MG TAB PO SCH (21:18)
[2020-04-13] MEDS: Sodium Chloride 0.9% 1,000 ML IV SCH ×3 (03:56→20:46)
[2020-04-13] MEDS: Ketorolac Tromethamine 30 MG/ML VIAL IVP SCH (06:25)
[2020-04-13] MEDS: Ferrous Gluconate 324 MG TAB PO SCH ×2 (08:49→17:13)
[2020-04-13] MEDS: Folic Acid 1 MG TAB PO SCH (08:49)
[2020-04-13] MEDS: Aspirin 81 mg Enteric Coated Tablet PO SCH ×2 (08:49→20:41)
[2020-04-13] MEDS: Potassium Chloride 20 MEQ TAB PO SCH (08:49)
[2020-04-13] MEDS: Estradiol 1 MG TAB PO SCH (08:49)
[2020-04-13] MEDS: Ondansetron PF 4 MG/2 ML Vial IVP PRN (08:49)
[2020-04-13] MEDS: Multivitamin W/ Minerals 1 TAB PO SCH (08:50)
[2020-04-13] MEDS: HYDROcodone/Acetaminophen 10/325 mg Tablet PO PRN ×4 (08:50→21:22)
[2020-04-13] MEDS: Senokot S 8.6-50 MG TAB PO SCH ×2 (08:50→20:42)
[2020-04-13] MEDS: Fentanyl 100 MCG/2 ML VIAL SLOW IVP PRN (08:58)
[2020-04-13] MEDS: Brimonidine Tartrate 0.2% Ophth Soln 5 ml Bottle EA EYE SCH ×2 (09:00→20:43)
[2020-04-13] MEDS ORDERED: Magnesium Citrate 300 ML BOT PO SCH (09:45)
[2020-04-13] MEDS: Timolol 0.5% Ophth Soln 5 ml Bottle EA EYE SCH ×2 (10:29→20:43)
--- NOTE | 2020-04-13 12:00 | PRG ---
DATE OF SERVICE: 04/13/2020 SUBJECTIVE: Reyna is a female, postop day 2 from left total knee arthroplasty. She is not doing as well today as she was yesterday. She has had a bit of a setback in terms of her pain and I think her pain block is not functioning as well. She has only been able to ambulate approximately 100 feet. OBJECTIVE: VITAL SIGNS: Temperature 97.7, pulse 60, respiratory rate 12, blood pressure 117/71. GENERAL: She is alert, oriented, responsive, and appropriate with examiner, but does complain of discomfort in the left knee. EXTREMITIES: No strike through. She is neurovascularly intact. No erythema. LABORATORY DATA: Hemoglobin and hematocrit are 11.4 and 36.1. IMPRESSION: A 69-year-old female, postop day 2, left total knee arthroplasty, doing well, but still with some pain problems. I recommend she stay in for another night unless consider a consult for inpatient rehab versus skilled rehab. Job ID: [id number]
[2020-04-13] MEDS: Potassium Citrate 10 MEQ TAB PO SCH (17:55)
[2020-04-13] MEDS: Furosemide 40 MG TAB PO SCH (20:41)
[2020-04-13] MEDS: Calcium Carbonate 600 MG + Vit D TAB PO SCH (20:41)
[2020-04-13] MEDS: Temazepam 15 MG CAP PO SCH (20:41)
[2020-04-13] MEDS: Metoprolol Tartrate 25 MG TAB PO SCH (20:45)
[2020-04-13] MEDS: Amlodipine 10 MG TAB PO SCH (20:45)
[2020-04-14] MEDS: HYDROcodone/Acetaminophen 10/325 mg Tablet PO PRN ×4 (01:20→20:03)
[2020-04-14] MEDS: diphenhydrAMINE 25 MG CAP PO PRN ×3 (04:24→20:03)
[2020-04-14] MEDS: Timolol 0.5% Ophth Soln 5 ml Bottle EA EYE SCH ×2 (08:56→20:02)
[2020-04-14] MEDS: Brimonidine Tartrate 0.2% Ophth Soln 5 ml Bottle EA EYE SCH ×2 (08:57→20:02)
[2020-04-14] MEDS: Folic Acid 1 MG TAB PO SCH (08:58)
[2020-04-14] MEDS: Aspirin 81 mg Enteric Coated Tablet PO SCH ×2 (08:58→20:03)
[2020-04-14] MEDS: Multivitamin W/ Minerals 1 TAB PO SCH (08:58)
[2020-04-14] MEDS: Potassium Chloride 20 MEQ TAB PO SCH (08:58)
[2020-04-14] MEDS: Estradiol 1 MG TAB PO SCH (08:58)
[2020-04-14] MEDS: Ferrous Gluconate 324 MG TAB PO SCH ×2 (08:58→17:59)
[2020-04-14] MEDS: Senokot S 8.6-50 MG TAB PO SCH ×2 (09:01→20:03)
--- NOTE | 2020-04-14 09:17 | PRG ---
DATE OF SERVICE: 04/14/2020 SUBJECTIVE: Reyna is a 69-year-old female, who is postop day #3 for left total knee arthroplasty. She is doing relatively well. She required some fentanyl yesterday. Pain is little better today. She is ambulating 70 to 100 feet currently. OBJECTIVE: VITAL SIGNS: Temperature 98.5, pulse 71, respiratory rate 14, blood pressure is 127/75. GENERAL: She is alert, oriented, responsive, and appropriate with examiner and conversive. EXTREMITIES: Her incision is clean. No strikethrough. No erythema. She is neurovascularly intact in the left lower extremity. LABORATORY DATA: Hemoglobin and hematocrit 11.4 and 36.1. IMPRESSION: 1. This is a 69-year-old female, postop day #3 left total knee arthroplasty. 2. Pain is improving, but still requiring treatment. PLAN: We will hold discharge for now and give consideration to either home health versus skilled facility tomorrow. Job ID: [id number]
[2020-04-14] MEDS: Sodium Chloride 0.9% 1,000 ML IV SCH ×2 (15:42→19:57)
[2020-04-14] MEDS: Potassium Citrate 10 MEQ TAB PO SCH (18:00)
[2020-04-14] MEDS: Temazepam 15 MG CAP PO SCH (20:03)
[2020-04-14] MEDS: Furosemide 40 MG TAB PO SCH (20:03)
[2020-04-14] MEDS: Amlodipine 10 MG TAB PO SCH (20:03)
[2020-04-14] MEDS: Metoprolol Tartrate 25 MG TAB PO SCH (20:03)
[2020-04-14] MEDS: Calcium Carbonate 600 MG + Vit D TAB PO SCH (20:03)
[2020-04-15] MEDS: Sodium Chloride 0.9% 1,000 ML IV SCH ×2 (04:52→15:07)
[2020-04-15] MEDS: HYDROcodone/Acetaminophen 10/325 mg Tablet PO PRN ×2 (05:23→16:27)
[2020-04-15] MEDS: Folic Acid 1 MG TAB PO SCH (08:34)
[2020-04-15] MEDS: Multivitamin W/ Minerals 1 TAB PO SCH (08:34)
[2020-04-15] MEDS: Potassium Chloride 20 MEQ TAB PO SCH (08:34)
[2020-04-15] MEDS: Aspirin 81 mg Enteric Coated Tablet PO SCH (08:34)
[2020-04-15] MEDS: Estradiol 1 MG TAB PO SCH (08:34)
[2020-04-15] MEDS: Senokot S 8.6-50 MG TAB PO SCH (08:35)
[2020-04-15] MEDS: Ferrous Gluconate 324 MG TAB PO SCH ×2 (08:35→16:27)
[2020-04-15] MEDS: Brimonidine Tartrate 0.2% Ophth Soln 5 ml Bottle EA EYE SCH (08:36)
[2020-04-15] MEDS: Timolol 0.5% Ophth Soln 5 ml Bottle EA EYE SCH (08:36)
[2020-04-15] MEDS: Ondansetron PF 4 MG/2 ML Vial IVP PRN (09:02)
[2020-04-15] MEDS: diphenhydrAMINE 25 MG CAP PO PRN (12:19)
[2020-04-15 15:58] VITALS: BP 119/70; TEMP 98.1
[2020-04-15] MEDS: Potassium Citrate 10 MEQ TAB PO SCH (16:27)
== END 2020-04-15 18:41 | disposition swing bed (61) | DRG 470 ==
LOC: SDC 06:00 → SJJU 12:39
PROVIDERS: ADMIT Orthopaedic Surgery; ATTEND Orthopaedic Surgery
PROC: 0SRD0J9 Replacement of Left Knee Joint with Synthetic Substitute, Cemented, Open Approach (ICD-10-PCS; principal; 2020-04-11)
DX: M17.12 Unilateral primary osteoarthritis, left knee (principal); I10 Essential (primary) hypertension; G43.909 Migraine, unspecified, not intractable, without status migrainosus; D64.9 Anemia, unspecified; J30.9 Allergic rhinitis, unspecified; H40.9 Unspecified glaucoma; H26.9 Unspecified cataract; Z90.710 Acquired absence of both cervix and uterus; Z79.899 Other long term (current) drug therapy
CPT/HCPCS: 36415; 85027; 93005; 93010; C1713; C1776; J0670; J0690; J1100; J1885; J2250; J2405; J2704; J2795; J3010; J3370; J3490; Q0163

== ENCOUNTER 2020-12-20 13:15 | Outpatient (CLI) | payer MEDICARE ==
[2020-12-20 15:01] LABS: Bilirubin Neg (Negative); Blood, Urine Negative (Negative); Clarity Clear (Clear); Glucose, Urine (Dipstick) Normal (Negative); Ketone, Urine Negative (Negative); Leukocyte Negative (Negative); Nitrite Negative (Negative); Protein, Urine (Dipstick) 15 mg/dl (Neg-Trace); Urobilinogen Normal mg/dL (Less than 2); pH, Urine 6.5 (5.0-9.0)
[2020-12-20 15:16] LABS: #Eosinphils 0.2 10x3/uL (0.0-0.5); #Monocytes 0.3 10x3/uL (0.0-1.1); #Neutrophils 2.4 10x3/uL (1.5-8.4); %Basophils 0.2 % (0.0-2.0); %Eosinophils 4.7 % (0.0-6.0); %Lymphocytes 34.7 % (18.0-47.0); %Neutrophils 54.2 % (40.0-75.0); Hemoglobin 12.6 g/dL (12.0-15.5); Mean Corpuscular HGB CONC 33.1 g/dL (32.0-36.0); Mean Corpuscular Hemoglobin 30.1 pg (27.0-33.0); Mean Corpuscular Volume 90.9 fl (81.6-98.3); Platelet Count 146 10x3/uL (150-450); RBC Distribution Width 13.5 % (11.5-14.5); Red Blood Cell (RBC) Count 4.19 10x6/uL (3.90-5.03); White Blood Cell (WBC) Count 4.5 10x3/uL (3.5-10.5)
[2020-12-20 15:17] LABS: Squamous Epithelial 0-3 HPF (0-3)
[2020-12-20 15:18] LABS: Bacteria/HPF Rare-Few HPF (None Seen)
[2020-12-21 02:03] LABS: SARS-CoV-2 PCR by NAA Not Detected (NotDetected)
== END 2020-12-20 13:16 | disposition home or self-care (01) ==
LOC: LABBT 13:15
PROVIDERS: ATTEND Orthopaedic Surgery Hand Surgery
DX: Z01.818 Encounter for other preprocedural examination (principal); Z20.822 Contact with and (suspected) exposure to COVID-19; G56.01 Carpal tunnel syndrome, right upper limb
CPT/HCPCS: 81001; 85025; 93005; U0003; U0005; 87635; 93010

== ENCOUNTER 2020-12-23 05:41 | Day surgery (SDC) | payer MEDICARE ==
[2020-12-22 11:23] VITALS: BMI 28.3
[2020-12-23] MEDS ORDERED: Betamet Acet/Betamet Na Ph 30 MG/5 ML VIAL ONE (06:18)
[2020-12-23] MEDS ORDERED: Bacitracin Zinc Ointment 30 gm TUBE ONE (06:18)
[2020-12-23] MEDS ORDERED: Bupivacaine PF 0.5% 30 ML VIAL ONE (06:18)
[2020-12-23] MEDS ORDERED: Sodium Chloride 0.9% 10 ML ONE (06:18)
[2020-12-23] MEDS ORDERED: Midazolam HCl 2 mg/2 ml Vial ONE (06:57)
[2020-12-23] MEDS ORDERED: Fentanyl 100 MCG/2 ML VIAL ONE (06:57)
[2020-12-23] MEDS ORDERED: Propofol 500 MG/50 ML VIAL ONE (06:58)
[2020-12-23] MEDS ORDERED: Ketamine 50 MG/ML (10ML VIAL) ONE (06:58)
[2020-12-23] MEDS ORDERED: Ketorolac Tromethamine 30 MG/ML VIAL ONE (08:47)
== END 2020-12-23 08:55 | disposition home or self-care (01) ==
LOC: SDC 05:41
PROVIDERS: ATTEND Orthopaedic Surgery Hand Surgery
PROC: 01N50ZZ Release Median Nerve, Open Approach (ICD-10-PCS; principal; 2020-12-23)
DX: G56.01 Carpal tunnel syndrome, right upper limb (principal); M65.311 Trigger thumb, right thumb; M48.02 Spinal stenosis, cervical region; G56.11 Other lesions of median nerve, right upper limb; M18.11 Unilateral primary osteoarthritis of first carpometacarpal joint, right hand; M19.031 Primary osteoarthritis, right wrist; I10 Essential (primary) hypertension; Z79.82 Long term (current) use of aspirin; Z79.899 Other long term (current) drug therapy; Z91.048 Other nonmedicinal substance allergy status; Z96.653 Presence of artificial knee joint, bilateral
CPT/HCPCS: J0690; J0702; J1885; J2250; J2704; J3010; J3490; S0020

== ENCOUNTER 2023-05-29 23:42 | Emergency (ER) | payer OTHER ==
[2023-05-30 00:27] LABS: #Eosinphils 0.1 thou/uL (0.0-0.7); #Monocytes 0.3 thou/uL (0.11-0.59); #Neutrophils 3.8 thou/uL (1.40-6.50); %Basophils 0.4 % (0.0-1.0); %Eosinophils 1.9 % (0.0-10.0); %Lymphocytes 21.5 % (21.0-51.0); %Monocytes 5.9 % (0.0-10.0); %Neutrophils 70.1 % (42.0-75.0); Hemoglobin 13.4 g/dL (12.0-16.0); Mean Corpuscular HGB CONC 33.5 g/dL (32.0-36.0); Mean Corpuscular Hemoglobin 30.6 pg (27.0-31.0); Mean Corpuscular Volume 91.3 fl (78.0-98.0); Mean Platelet Volume 12.7 fL (7.4-10.4); Platelet Count 125 10x3/uL (130-400); RBC Distribution Width 14.5 % (11.5-14.5); Red Blood Cell (RBC) Count 4.38 mill/uL (4.20-5.40); White Blood Cell (WBC) Count 5.4 10x3/uL (4.8-10.8)
[2023-05-30 00:51] LABS: Bilirubin Negative (Negative); Blood, Urine Negative (Negative); CAUTI Indications for Culture Alt mental st,lethar; Clarity Clear (Clear); Glucose, Urine (Dipstick) Normal (Negative); Ketone, Urine Negative (Negative); Leukocyte Negative Leu/uL (Negative); Nitrite Negative (Negative); Protein, Urine (Dipstick) Negative (Neg-Trace); RBC/HPF 0-3 HPF (0-3); Specific Gravity, Urine 1.007 (1.002-1.036); Urobilinogen Normal mg/dL (Less than 2); WBC/HPF 0-3 HPF (0-3)
[2023-05-30 00:53] LABS: Bacteria/HPF Rare-Few HPF (None Seen)
[2023-05-30 00:54] LABS: Urine Culture Reflex No No
[2023-05-30 00:54] LABS: ALT (SGPT) 21 U/L (8-55); AST (SGOT) 23 U/L (5-34); Albumin 4.4 g/dL (3.4-4.8); Alkaline Phosphatase 51 U/L (40-110); Anion Gap 12 mmol/L (10-20); BUN (Urea Nitrogen) 12 mg/dL (9.8-20.1); Bilirubin, Total 0.5 mg/dL (0.2-1.2); Calc. Creatinine Clearance 0 mL/min (70-130); Calcium 10.4 mg/dL (7.8-10.44); Carbon Dioxide 27 mmol/L (23-31); Chloride 102 mmol/L (98-107); Estimated GFR 75; Globulin 3.5 g/dL (2.4-3.5); Glucose 119 mg/dL (83-110); Potassium 3.3 mmol/L (3.5-5.1); Protein, Total 7.9 g/dL (5.8-8.1); Sodium 138 mmol/L (136-145)
[2023-05-30] MEDS ORDERED: Acetaminophen 500 MG TAB ONE (00:56)
[2023-05-30] MEDS ORDERED: Amlodipine 5 MG TAB ONE (00:56)
[2023-05-30] MEDS ORDERED: Metoprolol Tartrate 25 MG TAB ONE ×2 (00:56→01:25)
[2023-05-30] MEDS ORDERED: Ondansetron PF 4 MG/2 ML Vial ONE (00:56)
[2023-05-30] MEDS ORDERED: diphenhydrAMINE 50 MG/ML VIAL ONE (01:12)
[2023-05-30] MEDS ORDERED: Metoclopramide HCl 10 MG/2 ML VIAL ONE (01:12)
[2023-05-30 01:49] LABS: Troponin I Less than 0.010 ng/mL (< 0.028)
== END 2023-05-30 07:34 | disposition short-term general hospital (02) ==
LOC: ERS 23:42
DX: I10 Essential (primary) hypertension (principal); Z79.899 Other long term (current) drug therapy
CPT/HCPCS: 70450; 71045; 80053; 81001; 83880; 84484; 85025; 93005; 94760; J1200; J2405; J2765

== ENCOUNTER 2024-05-08 09:47 | Outpatient (CLI) | payer OTHER | END 2024-05-08 09:48 | disposition home or self-care (01) | LOC: SCSMRI 09:47 | PROVIDERS: ATTEND Family Medicine | DX: M54.41 Lumbago with sciatica, right side (principal); M54.42 Lumbago with sciatica, left side; M47.816 Spondylosis without myelopathy or radiculopathy, lumbar region; M47.817 Spondylosis without myelopathy or radiculopathy, lumbosacral region | CPT/HCPCS: 72148 ==

== ENCOUNTER 2025-05-26 10:33 | Outpatient (CLI) | payer OTHER | END 2025-05-26 10:34 | disposition home or self-care (01) | LOC: SCSMRI 10:33 | PROVIDERS: ATTEND Family Medicine | DX: M25.851 Other specified joint disorders, right hip (principal); R10.30 Lower abdominal pain, unspecified; M54.50 Low back pain, unspecified; M16.11 Unilateral primary osteoarthritis, right hip; M76.01 Gluteal tendinitis, right hip ==

== ENCOUNTER 2025-08-06 07:09 | Emergency (ER) | payer OTHER ==
[2025-08-06 07:53] LABS: ALT (SGPT) 13 U/L (Less than 34); AST (SGOT) 31 U/L (11-34); Albumin 3.8 g/dL (3.1-4.5); Alkaline Phosphatase 48 U/L (40-110); Anion Gap 15 mmol/L (10-20); BUN (Urea Nitrogen) 17 mg/dL (9.8-20.1); Bilirubin, Total 0.4 mg/dL (0.3-1.2); Calc. Creatinine Clearance 0 mL/min (70-130); Calcium 10.0 mg/dL (7.8-10.44); Carbon Dioxide 25 mmol/L (23-31); Chloride 104 mmol/L (98-107); Globulin 3.4 g/dL (2.4-3.5); Glucose 108 mg/dL (83-110); Magnesium 1.7 mg/dL (1.6-2.6); Potassium 3.5 mmol/L (3.5-5.1); Sodium 140 mmol/L (136-145)
[2025-08-06 09:01] LABS: #Basophils 0.04 10x3/uL (0.0-0.2); #Eosinophils 0.21 10x3/uL (0.0-0.7); #Monocytes 0.34 10x3/uL (0.11-0.59); #Neutrophils 2.46 10x3/uL (1.40-6.50); %Basophils 0.9 % (0.0-1.0); %Eosinophils 4.8 % (0.0-10.0); %Lymphocytes 30.0 % (21.0-51.0); %Monocytes 7.8 % (0.0-10.0); %Neutrophils 56.3 % (42.0-75.0); Hematocrit 39.4 % (36.0-47.0); Hemoglobin 12.9 g/dL (12.0-16.0); Mean Corpuscular Hemoglobin 29.4 pg (27.0-31.0); Mean Corpuscular Volume 89.7 fL (78.0-98.0); Platelet Count 139 10x3/uL (130-400); Red Blood Cell (RBC) Count 4.39 mill/uL (4.20-5.40); White Blood Cell (WBC) Count 4.37 10x3/uL (4.8-10.8)
[2025-08-06 09:28] LABS: Bacteria/HPF None Seen HPF (None Seen); CAUTI Indications for Culture Dysuria,urgency,freq; Glucose, Urine (Dipstick) Normal (Negative); Leukocyte Negative Leu/uL (Negative); Protein, Urine (Dipstick) Negative (Neg-Trace); RBC/HPF 0-3 HPF (0-3); Specific Gravity, Urine 1.015 (1.002-1.036); WBC/HPF 0-3 HPF (0-3)
[2025-08-06 09:29] LABS: Urine Culture Reflex No No
[2025-08-06] MEDS ORDERED: Acetaminophen 500 MG TAB ONE (09:29)
== END 2025-08-06 10:36 | disposition home or self-care (01) ==
LOC: ERS 07:09
DX: Z71.1 Person with feared health complaint in whom no diagnosis is made (principal); R60.0 Localized edema; I11.0 Hypertensive heart disease with heart failure; I50.9 Heart failure, unspecified; E78.5 Hyperlipidemia, unspecified; Z79.899 Other long term (current) drug therapy
CPT/HCPCS: 36415; 71046; 80053; 81001; 83735; 83880; 85025; 93005